=== PATIENT | female | born 1945 | race Caucasian/White ===

== ENCOUNTER 2021-05-20 12:13 | Inpatient (IN) | payer BC, OTHER, SELFPAY ==
[~2021-05-20] VITALS: Ht 152.4 cm; Wt 63.5 kg
[2021-05-20 12:13] VITALS: BP_SYST 144
--- NOTE | 2021-05-20 12:13 | NUR ---
BROUGHT BACK IMMEDIATELY TO BED #1 AND TRIAGED. REPORT GIVEN TO NURSE
--- NOTE | 2021-05-20 12:15 | NUR ---
Pt came into ER with complaint of chest and throat pressure X3days pt denies pain or SOB. VSS no distress noted at this time. Pt resting in gurney attached to monitor with side rails up. AAOX4 speaking full sentences.
--- NOTE | 2021-05-20 12:20 | NUR ---
ER at bedside examining patient.
--- NOTE | 2021-05-20 12:42 | NUR ---
X-ray at bedside.
[2021-05-20 12:51] LABS: BASOPHILS # (AUTO) 0.1 K/uL (0.0-0.2); BASOPHILS % (AUTO) 0.6 % (0.0-2.0); EOSINOPHILS # (AUTO) 0.2 K/uL (0.0-0.4); HEMATOCRIT 37.6 % (36-48); LYMPHOCYTES # (AUTO) 2.9 K/uL (1.0-5.5); LYMPHOCYTES % (AUTO) 28.9 % (20.5-51.5); MEAN CORPUSCULAR HEMOGLOBIN 31 pg (27-31); MEAN CORPUSCULAR HGB CONC 35 % (32-36); MEAN CORPUSCULAR VOLUME 89 fL (79.0-98.0); MONOCYTES # (AUTO) 0.9 K/uL (0.0-1.0); MONOCYTES % (AUTO) 8.6 % (1.7-9.3); NEUTROPHILS % (AUTO) 59.9 % (40.0-70.0); PLATELET COUNT (AUTO) 285 K/uL (130-430); RED BLOOD CELL COUNT(AUTO) 4.23 MIL/uL (4.2-6.2); RED CELL DISTRIBUTION WIDTH 13.2 % (9.0-15.0)
[2021-05-20 12:57] LABS: ANION GAP 6 (5-15); CALCIUM 9.2 mg/dL (8.4-11.0); CHLORIDE 102 mmol/L (98-107); CREATININE 0.79 mg/dL (0.55-1.30); GLUCOSE 157 mg/dL (70-99); SODIUM SERUM 140 mmol/L (136-145); UREA NITROGEN, BLOOD 16 mg/dL (8-21)
[2021-05-20 13:11] LABS: ALANINE AMINOTRANSFERASE 50 U/L (12-78); ALBUMIN 3.6 g/dL (3.4-4.8); ASPARTATE AMINOTRANSFERASE 23 U/L (10-37); TOTAL BILIRUBIN 0.3 mg/dL (0.0-1.0)
--- NOTE | 2021-05-20 13:24 | NUR ---
Yareli Montoya at bedside examining patient.
[2021-05-20] MEDS ORDERED: ASPIRIN 325 MG TABLET PO ONE (13:45)
[2021-05-20] MEDS ORDERED: ENOXAPARIN SODIUM 60 MG/0.6 ML SYRINGE SUBCUT ONE (13:45)
[2021-05-20] MEDS ORDERED: NITROGLYCERIN 1 INCH (GM) OINT. TP ONE (13:45)
--- NOTE | 2021-05-20 14:00 | NUR ---
ER at bedside examining patient.
[2021-05-20] MEDS ORDERED: METOPROLOL SUCCINATE 25 MG TAB.SR.24H (TOPROL XL) PO ONE (15:15)
--- NOTE | 2021-05-20 15:20 | NUR ---
Pt resting in [facility] BP elevated 159/77 Vital signs holding. No distress noted. Attached to monitor with side rails up.
[2021-05-20] MEDS ORDERED: ASPI-1393 PO (15:36)
[2021-05-20] MEDS ORDERED: GABA-529 PO (15:36)
[2021-05-20] MEDS ORDERED: COLE625T9 PO (15:39)
[2021-05-20] MEDS ORDERED: AMLO5TAB4 PO (15:39)
[2021-05-20] MEDS ORDERED: METF-518 PO ×2 (15:39)
[2021-05-20] MEDS ORDERED: VALS160T2 PO (15:39)
[2021-05-20] MEDS ORDERED: GLIP2.5T3 PO (15:39)
[2021-05-20] MEDS ORDERED: SIMV20TA2 PO (15:39)
--- NOTE | 2021-05-20 15:40 | NUR ---
Medication reconciliation completed with information provided by Patient. Any prior medication reconciliation on file was reviewed and corrected.
--- NOTE | 2021-05-20 15:43 | NUR ---
Spoke with Dr. Jacinto and updated on pt status. Dr. Montague will be seeing pt for him and schedule angiogram for tomorrow.
--- NOTE | 2021-05-20 15:45 | NUR ---
Covid swab collected and sent to lab.
[2021-05-20] MEDS ORDERED: METOCLOPRAMIDE HCL 10 MG/2 ML VIAL IVP PRN (16:30)
[2021-05-20] MEDS ORDERED: MORPHINE 4 MG INJ. 4 MG/ML VIAL IVP PRN (16:30)
[2021-05-20] MEDS ORDERED: MORPHINE 2 MG/ML INJ. SYRINGE IVP PRN (16:30)
[2021-05-20] MEDS ORDERED: ACETAMINOPHEN 325 MG TABLET PO PRN (16:30)
[2021-05-20] MEDS ORDERED: DEXTROSE 50% JECT 50 ML DISP.SYRIN IVP PRN (16:30)
[2021-05-20] MEDS ORDERED: GABAPENTIN 100 MG CAPSULE PO ONE (16:45)
[2021-05-20] MEDS ORDERED: ENALAPRILAT DIHYDRATE 1.25 MG/ML VIAL IVP PRN (16:45)
[2021-05-20] MEDS ORDERED: LOSARTAN POTASSIUM 50 MG TABLET (COZAAR) PO ONE (16:45)
[2021-05-20] MEDS ORDERED: SIMVASTATIN 20 MG TABLET PO ONE (16:45)
[2021-05-20] MEDS ORDERED: *LOVENOX 1MG/KG Q12H/PHARMACY XX ONE (16:45)
[2021-05-20] MEDS ORDERED: hydrALAZINE HCL 20 MG/ML VIAL IVP PRN (16:45)
--- NOTE | 2021-05-20 16:59 | NUR ---
Patient will be admitted to care of Tj. Admitted to Telemetry unit. Will go to room 120B. Belongings list completed. Complete and up to date summary report printed. SBAR report to be given at bedside with opportunity for questions.
--- NOTE | 2021-05-20 17:00 | NUR ---
Dr. Montague at bedside examining pt.
--- NOTE | 2021-05-20 17:07 | NUR ---
Donte christina in [facility] - 05/20/21 at 1712 by GRICEL Transferred pt to room 120B on [facility] attached to portable monitor.
--- NOTE | 2021-05-20 17:12 | NUR ---
Zoraida cortez RN says there is no staff available on unit. Pt will be held in the ER until staff can be allocated.
--- NOTE | 2021-05-20 17:24 | NUR ---
Called pharmacy for medications not loaded in pyxis.
--- NOTE | 2021-05-20 17:26 | NUR ---
Called [facility] enc[facility] Farrah to set up transfer for pt to [facility].
--- NOTE | 2021-05-20 17:39 | NUR ---
Transferred pt to room 120B on [facility] attached to portable monitor.
[2021-05-20 18:00] VITALS: BP_SYST 149
[2021-05-20 18:56] VITALS: BP_SYST 124
--- NOTE | 2021-05-20 19:00 | NUR ---
AMBULANCE TRANSPORT TOOL MAINTENANCE TECHNICIAN: CALLED [facility] AND SPOKE WITH CHRISTIAN TO ARRANGE TRANSPORT TO [facility] FAXED FACE SHEET TO [phone] RECEIVED CALL BACK AND SPOKE WITH ONEYDA FROM [facility] REGARDING TIME OF TOOL MAINTENANCE TECHNICIAN FOR 05/21/2021 TO BE ARRANGED AT 9:45 AM BY KIEL ANDERSON THERE NUMBER IS [phone] ANY QUESTIONS CALL [employer]CH[employer] AUTHORIZATION NUMBER IS [phone]
--- NOTE | 2021-05-20 20:15 | NUR ---
Patient ALERT Sand witch po given Juice po also tolerated HOB elevated no aspiration noted FOOD TOLERATE .
[2021-05-20 20:30] VITALS: BP_SYST 146
[2021-05-20 21:02] LABS: CHOLESTEROL 153 mg/dL (<200); TRIGLYCERIDES 471 mg/dL (30-150)
[2021-05-20 21:03] LABS: HDL CHOLESTEROL 41 mg/dL (>55); LDL CHOLESTEROL 61 mg/dL (<100)
[2021-05-20] MEDS: METOPROLOL TARTRATE 25 MG TABLET PO SCH (21:14)
[2021-05-21] VITALS: BP_SYST 147
--- NOTE | 2021-05-21 | NUR ---
BSG BLOOD SUGAR GLUCOSE 141 mg dl no DIABETIC Reactions noted , snacks given & tolerated .
--- NOTE | 2021-05-21 00:12 | NUR ---
Patient NPO for AM procedure procedures explained .
[2021-05-21] MEDS: ENOXAPARIN SODIUM 60 MG/0.6 ML SYRINGE SUBCUT SCH ×2 (01:16→11:27)
--- NOTE | 2021-05-21 03:43 | NUR ---
Hourly Rounding patient Resting is verbally Responsive call garza given to patient chest movement symmetrical / .
--- NOTE | 2021-05-21 03:48 | NUR ---
ASSIST Patient out of bed AMBULATES to Rest Room steady GAIT no SOB noted tolerate skin dry warm .
--- NOTE | 2021-05-21 04:32 | NUR ---
APRESOLINE 10 MG IVP ADMINISTER FOR elevated BP 167/89 HR 89 continue to monitor .
--- NOTE | 2021-05-21 04:35 | NUR ---
Patient placed on 2 liters NC and on bedrest 02 SAT 98 % , patient alert & oriented comfort measures helpful .
[2021-05-21 05:03] VITALS: BP_SYST 159
--- NOTE | 2021-05-21 05:22 | NUR ---
Patient Resting awake alert on NC @ 2 LPM HOB elevated 02 SAT 97 % skin dry warm / .
--- NOTE | 2021-05-21 05:45 | NUR ---
PHONED Paged DR RACHEAL ORELLANA , PATIENT NOT FEELING WELL With chest pressure , call back pending .
--- NOTE | 2021-05-21 05:50 | NUR ---
DR RACHEAL ORELLANA UPDATED & AWARE of Patient condition no new orders , DR EDISON ORELLANA WILL SEE PATIENT .
[2021-05-21] MEDS: INSULIN REGULAR, HUMAN 100 UNITS/ML, 10 ML VIAL (humuLIN R) SUBCUT PRN ×2 (06:12→11:26)
[2021-05-21 08:00] VITALS: BP_SYST 130
--- NOTE | 2021-05-21 08:00 | NUR ---
pt sleeping in bed,A/Ox4,vss,on O2 2L/NC,sat 97%,needs attended,call light & personal items within pt reach safety maintained.continue to monitor pt
[2021-05-21] MEDS ORDERED: SIMVASTATIN 20 MG TABLET PO SCH (09:00)
[2021-05-21] MEDS ORDERED: GABAPENTIN 100 MG CAPSULE PO SCH (09:00)
[2021-05-21] MEDS ORDERED: glipiZIDE XL 2.5 MG/TAB (GLUCOTROL XL) PO SCH (09:00)
[2021-05-21] MEDS ORDERED: ASPIRIN 81 MG TABLET(ECOTRIN) PO SCH (09:00)
[2021-05-21] MEDS ORDERED: LOSARTAN POTASSIUM 50 MG TABLET (COZAAR) PO SCH (09:00)
[2021-05-21] MEDS: METOPROLOL TARTRATE 25 MG TABLET PO SCH (09:32)
--- NOTE | 2021-05-21 09:49 | NUR ---
Patient denies any chest pain , breakfast served , NPO for lunch instructed [facility] signed by the patient
--- NOTE | 2021-05-21 11:00 | NUR ---
received critical lab result troponin 1.637, called and left message with antionette in office.
[2021-05-21 12:00] VITALS: BP_SYST 126
--- NOTE | 2021-05-21 13:00 | NUR ---
keep pt NPO for oncoming angiogram,called [facility] and give report to emma SCHULZ.
[2021-05-21 13:28] VITALS: BP_SYST 113
--- NOTE | 2021-05-21 15:00 | NUR ---
d/c telemetry ,leave IV saline lock in left antecutibal for [facility],daughter mary visiting at bedside and awared of transfer.
== END 2021-05-21 15:20 | disposition short-term general hospital (02) | DRG 282 ==
LOC: SED 12:13 → STU 15:07
PROVIDERS: ADMIT Internal Medicine Hospice and Palliative Medicine; ATTEND Internal Medicine Hospice and Palliative Medicine
DX: I21.9 Acute myocardial infarction, unspecified (principal); E78.5 Hyperlipidemia, unspecified; E11.9 Type 2 diabetes mellitus without complications; J44.9 Chronic obstructive pulmonary disease, unspecified; Z20.822 Contact with and (suspected) exposure to COVID-19; I10 Essential (primary) hypertension; F17.210 Nicotine dependence, cigarettes, uncomplicated; Z83.3 Family history of diabetes mellitus
CPT/HCPCS: 36415; 71045; 80053; 80061; 82962; 83036; 84484; 85025; 93005; 93306; 96372; 99291; G0378; J0360; J1650; J1815